=== PATIENT | female | born 1995 | race Caucasian/White ===

== ENCOUNTER → 2020-07-15 | Outpatient (CLI) | payer OTHER ==
--- NOTE | 2020-07-15 09:07 | DIREP ---
PROCEDURE:XRAY ABDOMEN SINGLE VW COMPARISON:None. INDICATIONS:M79.5 FOREIGN BODY IN SOFT TISSUE, eval of patency capsule, sb vs colon FINDINGS: BOWEL GAS PATTERN:Nonobstructive bowel gas pattern. Mild stool burden throughout the colon. Overlying the right lower quadrant, likely proximal ascending colon, is a 2.1 x 1.3 cm high density, possibly the capsule of interest. CALCIFICATIONS:None significant. LUNG BASES:Not visualized BONES:Normal. OTHER:Intrauterine device noted. CONCLUSION: 1. A 2.1 x 1.3 cm high density overlying the proximal ascending colon which may represent the capsule of interest. Dictated by: Hilario Carrillo MD on 07/15/2020 at 09:03 AM
== END | disposition home or self-care (01) ==
LOC: LAB 08:23
PROVIDERS: ATTEND Internal Medicine Gastroenterology
DX: M79.5 Residual foreign body in soft tissue (principal)
CPT/HCPCS: 74018

== ENCOUNTER 2022-02-14 12:37 | Emergency (ER) | payer OTHER ==
[~2022-02-14] VITALS: Ht 152.4 cm; Wt 67.1 kg
[2022-02-14 13:02] VITALS: BP 107/55
--- NOTE | 2022-02-14 13:03 | ER.PDOC ---
General Chief Complaint: Requesting Medical Care Stated Complaint: N/V TRAVEL OUT OF US: No Time seen by MD: 13:02 History of Present Illness Initial Comments recntly diagnosed with Flu and strep Vomiting today Had been getting better Allergic to zofran Has phenergan at home denies Timing/Duration: other (several days) Severity: moderate Associated Symptoms: denies symptoms Past Medical History Medical History: no pertinent history Surgical History: no surgical history Family History Significant Family History: no pertinent family hx Social History Smoking: non-smoker Reviewed Nursing Reviewed: Vital Signs, Abn. Noted, Nursing Assessment Review of Systems Constitutional: see HPI, malaise, weakness EENTM: see HPI, throat pain Respiratory: no symptoms reported Gastrointestinal: see HPI, nausea, vomiting Musculoskeletal: no symptoms reported Skin: no symptoms reported Psychiatric/Neurological: no symptoms reported Immunological/Allergic: no symptoms reported Physical Exam General Appearance: No Apparent Distress, WD/WN EENT: eyes nml inspection, nml ENT inspection, pharynx nml Neck: Non-Tender, Full Range of Motion, Supple Respiratory: chest non-tender, lungs clear, normal breath sounds CVS: reg rate & rhythm, no murmur, no gallop Gastrointestinal: Normal Bowel Sounds, No Organomegaly, Non Tender Extremities: Normal Range of Motion, Non-Tender 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, No Motor/Sensory Deficits Skin: Normal Color, Warm/Dry, Cyanosis Lymphatic: No Adenopathy Results/Orders Results/Orders Vital Signs Date Time Temp Pulse Resp B/P (MAP) Pulse Ox O2 Delivery O2 Flow Rate FiO2 02/14/22 13:02 98.6 107 20 99 02/14/22 13:02 98.6 107 20 107/55 (72) 99 Room Air* 0 21 02/14/22 13:02 98.6 107 20 ER DEPART Departure Time of Disposition: 13:00 Disposition: 01 HOME / SELF CARE / HOMELESS Impression: Primary Impression: Nausea & vomiting Additional Impression: Viral syndrome Condition: Stable Referrals: PCP,UNKNOWN (PCP) PRIMARY CARE PROVIDER Comments not ill recommend using her phenergan and f/u with pcp Duration or Time Spent with Pa: 10 Problem Qualifiers ROSSY MORAN MD Feb 14, 2022 13:03
== END 2022-02-14 13:14 | disposition home or self-care (01) ==
LOC: ER 12:37
DX: R11.2 Nausea with vomiting, unspecified (principal); B34.9 Viral infection, unspecified
CPT/HCPCS: 99281